=== PATIENT | male | born 1950 | race Hispanic/Latino ===

== ENCOUNTER 2025-02-26 09:37 | Emergency (ER) | payer OTHER ==
[2025-02-26 10:11] LABS: Urine Microscopic Reflex YN NO UMIC
[2025-02-26] MEDS ORDERED: NA CHLORIDE 0.9% 1,000 ML ONE (10:39)
--- NOTE | 2025-02-26 10:42 | RAD REPORT ---
EXAMINATION: Abdomen Pelvis Wo Contrast CLINICAL INDICATION: Male, 74 years old.KIDNEY STONES TECHNIQUE: CT abdomen and pelvis was performed, without IV contrast, as per department protocol. Axia l, sagittal and coronal reconstructions were obtained. One or more of the following dose reduction techniques were used: Automated exposure control, adjustment of the mA and/or kV according to the pat ient size, and/or iterative reconstruction. Unless otherwise specified, incidental findings do not require dedicated imaging follow-up. [id number]. IV CONTRAST: Not administered. COMPARISON: No prior exams FINDINGS: The lack of intravenous contrast limits the sensitivity of this exam for evaluation of solid visceral organs, vascular structures, and retroperitoneum. LOWER CHEST: Mild intralobular septal thickening at the lung bases. Mild cardiomegaly. Coronary calci fications are present. Aortic root calcifications. UPPER GI: No significant abnormality. LIVER: No significant focal abnormality. GALLBLADDER/BILE DUCTS: No biliary ductal dilatation.? PANCREAS: No mass, ductal dilation, or kristine-pancreatic fluid. SPLEEN: Unremarkable. ADRENALS: 11 mm indeterminate left adrenal nodule with Hounsfield units of 36. Adrenal Incidental Ind eterminate, CT W/O, > 1 - 2 cm, > 10 HU, Homogeneous:Noncontrast CT, Incidental Indeterminate Adrenal Mass > 1 - 2 cm, > 10 HU, Homogeneous: Probable benign adenoma. Recommend 1 year follow up ad renal washout CT. If stable for > 1 year, no further f/u imaging.These guidelines do not apply to patients younger than 18 years, patients with cancer, and patients with any clinical suspicion of a f unctioning adrenal lesion. Reference: JACR 2017 Dec; 14(8):1038-44, JCAT 2016 Jul-Aug; 40(2):194-200 KIDNEYS AND URETERS: No hydronephrosis. Limited evaluation for renal lesions in the absence of IV con trast. No renal calculi. No ureteral calculi. ABDOMINAL AORTA AND OTHER VESSELS: Normal caliber aorta and IVC. PERITONEUM: No abnormal free fluid. No free air. LYMPH NODES: No pathologic lymphadenopathy. ABDOMINAL WALL: Fat containing inguinal hernias. SMALL BOWEL/COLON: Small bowel has normal course and caliber. No colonic wall thickening or pericolon ic inflammatory changes. URINARY BLADDER: Underdistended but grossly unremarkable. REPRODUCTIVE ORGANS: Moderate prostatomegaly. MUSCULOSKELETAL: Multilevel degenerative changes in the spine. No acute fracture. ADDITIONAL FINDINGS: None. IMPRESSION: Acute nonperforated diverticulitis of the mid sigmoid colon. Moderate prostatomegaly.
[2025-02-26] MEDS ORDERED: CIPROFLOXACIN 400mg IV 400 MG/200 ML BAG IV ONE (11:26)
[2025-02-26] MEDS ORDERED: CEFTRIAXONE 2000 MG/VIAL ONE (11:27)
[2025-02-26] MEDS ORDERED: METRONIDAZOLE 500mg IVPB 500 MG/100 ML BAG IV ONE (11:27)
[2025-02-26 11:34] LABS: Absolute Lymphocytes (CBC) 1.2 K/uL (0.7-4.9); Hematocrit 33.5 % (39.6-49.0); Hemoglobin 11.5 g/dL (13.6-17.9); MCH 34.6 pg (27.0-35.0); MCHC 34.4 g/dL (32.0-36.0); MCV 100.6 fL (80-100); MPV 8.2 fL (7.6-11.3); Nucleated RBC Absolute Count 0.0 (0-0); Nucleated Red Blood Cells % 0.0 % (0-0); RBC Red Blood Cell Count 3.33 M/uL (4.33-5.43); White Blood Count 9.10 thou/uL (4.3-10.9)
[2025-02-26] MEDS ORDERED: TAMSULOSIN 0.4 MG SR CAP ONE (11:36)
--- NOTE | 2025-02-26 11:46 | ER ---
Nurse's Notes [facility] Name: Vinayak Escamilla Age: 74 yrs Sex: Male : 1950 Arrival Date: 02/26/2025 Time: 09:37 Bed 12 Private MD: Diagnosis: Dysuria;Enlarged prostate with lower urinary tract symptoms;Diverticulitis of large intestine without perforation or abscess without bleeding-SIGMOID Presentation: 02/26 09:58 Chief complaint: Patient states: DYSURIA AND DIFFICULTY x2 WK. Coronavirus screen: At bp this time, the client does not indicate any symptoms associated with coronavirus-19. Ebola Screen: No symptoms or risks identified at this time. Initial Sepsis Screen: Does the patient meet any 2 criteria? No. Patient's initial sepsis screen is negative. Does the patient have a suspected source of infection? No. Patient's initial sepsis screen is negative. Risk Assessment: Do you want to hurt yourself or someone else?. Onset of symptoms is unknown. 09:58 Method Of Arrival: Ambulatory bp 09:58 Acuity: JAYNE 3 bp Triage Assessment: 09:59 General: Appears in no apparent distress. Behavior is calm, cooperative, appropriate bp for age. Pain: Complains of pain in pelvis. EENT: No deficits noted. Neuro: No deficits noted. Cardiovascular: No deficits noted. Respiratory: No deficits noted. GI: No deficits noted. : Reports burning with urination. Derm: No deficits noted. Musculoskeletal: No deficits noted. Historical: - Allergies: 09:59 No Known Allergies; bp - Immunization history:: Adult Immunizations up to date. - Infectious Disease History:: Denies. - Social history:: Smoking status: Patient denies any tobacco usage or history of. - Family history:: not pertinent. Screenin:11 [facility] ED Fall Risk Assessment (Adult) History of falling in the last 3 months, rg5 including since admission No falls in past 3 months (0 pts) Confusion or Disorientation No (0 pts) Intoxicated or Sedated No (0 pts) Impaired Gait No (0 pts) Mobility Assist Device Used No (0 pt) Altered Elimination No (0 pt) Score/Fall Risk Level 0 - 2 = Low Risk Oriented to surroundings, Maintained a safe environment. Abuse screen: Denies threats or abuse. Nutritional screening: No deficits noted. Tuberculosis screening: No symptoms or risk factors identified. Assessment: 11:00 Reassessment: No changes from previously documented assessment. Patient and/or family ll1 updated on plan of care and expected duration. Pain level reassessed. Patient is alert, oriented x 3, equal unlabored respirations, skin warm/dry/pink. 11:41 Reassessment: No changes from previously documented assessment. Patient and/or family ll1 updated on plan of care and expected duration. Pain level reassessed. 11:49 Reassessment: DC ON HOLD FOR IV ABX. bp 12:10 General: Appears in no apparent distress. comfortable, Behavior is calm, cooperative, rg5 appropriate for age. Neuro: Level of Consciousness is awake, alert, obeys commands, Oriented to person, place, time, situation, Appropriate for age. Cardiovascular: Patient's skin is warm and dry. Respiratory: Airway is patent Trachea midline Respiratory effort is even, unlabored, Respiratory pattern is regular, symmetrical. Vital Signs: 09:58 BP 142 / 67; Pulse 59; Resp 16; Temp 97.8; Pulse Ox 97% ; bp 12:28 BP 146 / 71; Pulse 57; Resp 18; Pulse Ox 95% ; rg5 ED Course: 09:39 Patient arrived in ED. im 09:40 Vinay Oreilly MD is Attending Physician. edilia 09:59 Triage completed. bp 09:59 Arm band placed on. bp 10:01 UA Rfx Gurvinder Cult if indicated Sent. ll1 10:01 Urine collected: clean catch specimen. ll1 10:17 CT Abd/Pelvis - Without Contrast In Process Unspecified. EDMS 10:53 No provider procedures requiring assistance completed. Missed attempt(s): 22 gauge in ll1 right antecubital area. Bleeding controlled, band aid applied, catheter tip intact. 10:55 Initial lab(s) drawn, by ne, sent to lab. Inserted saline lock: 22 gauge in left ll1 antecubital area, using aseptic technique. Blood collected. Flushed with 10 mL NS. 10:58 Nataliia Kuhn RN is Primary Nurse. ll1 10:58 CBC with Diff Sent. ll1 10:58 CMP Sent. ll1 11:44 Jerry Sol MD is Referral Physician. edilia 11:44 Thien Menon MD is Referral Physician. edilia 12:11 Patient has correct armband on for positive identification. Bed in low position. Call rg5 light in reach. Side rails up X 1. 13:30 IV discontinued, bleeding controlled, No redness/swelling at site. Pressure dressing rg5 applied. Administered Medications: 10:58 Drug: NS 0.9% IV 1000 ml IV at 1000 ml once; to be given as a bolus over 60 minutes ll1 Route: IV; Rate: 1000 ml; Site: left antecubital; 12:05 Follow up: IV Status: Completed infusion; IV Intake: 1000ml rg5 11:30 Drug: Rocephin IV 2 grams IV at per protocol once; Given slow IV push per [employer] bp instructions Route: IV; Rate: per protocol; Site: left antecubital; 12:05 Follow up: IV Status: Completed infusion; IV Intake: 100ml rg5 11:41 Drug: Flomax PO 0.4 mg PO once Route: PO; ll1 12:21 Follow up: Response: No adverse reaction; Pain is decreased rg5 12:05 Drug: metroNIDAZOLE IVPB 500 mg 100 ml IVPB at 200 ml/hr once over 30 mins Volume: 100 rg5 ml; Route: IVPB; Rate: 200 ml/hr; Infused Over: 30 mins; Site: left antecubital; 12:27 Follow up: Response: No adverse reaction; IV Intake: 100ml rg5 12:28 Follow up: IV Status: Completed infusion; IV Intake: 100ml rg5 12:28 Drug: Ciprofloxacin IVPB 400 mg 200 ml IVPB once over 60 mins Volume: 200 ml; Route: rg5 IVPB; Infused Over: 60 mins; Site: left antecubital; 13:30 Follow up: IV Status: Completed infusion; IV Intake: 200ml rg5 Medication: 12:11 VIS not applicable for this client. rg5 Intake: 12:05 IV: 1000ml; Total: 1000ml. rg5 12:05 IV: 100ml; Total: 1100ml. rg5 12:27 IV: 100ml; Total: 1200ml. rg5 12:28 IV: 100ml; Total: 1300ml. rg5 13:30 IV: 200ml; Total: 1500ml. rg5 Outcome: 11:45 Discharge ordered by MD. yeboah 12:11 Discharged to home ambulatory, rg5 12:11 Condition: stable 12:11 Discharge instructions given to patient, 13:30 Patient left the ED. rg5 Signatures: Dispatcher [employer] Vinay Bryant MD MD cha Peltier, Brian, RN RN Nataliia White RN RN ll1 Danna Salmon Rommel, ARNOLDO RN rg5
--- NOTE | 2025-02-26 11:46 | EDPHYS ---
Physician Documentation [facility] Name: Vinayak Escamilla Age: 74 yrs Sex: Male : 1950 Arrival Date: 02/26/2025 Time: 09:37 Bed 12 Private MD: ED Physician Vinay Oreilly HPI: 02/26 11:39 This 74 yrs old Male presents to ER via Ambulatory with complaints of Urinary edilia Problem. 11:39 The patient presents with abdominal pain in the lower abdomen, in the left lower edilia quadrant, abdominal distention in the lower abdomen. Onset: The symptoms/episode began/occurred 14 day(s) ago. The patient presents with swelling, tenderness, urinary symptoms, urinary frequency. Modifying factors: The symptoms are alleviated by nothing, the symptoms are aggravated by urinating. Associated signs and symptoms: The patient has no apparent associated signs or symptoms. Associated signs and symptoms: none. Historical: - Allergies: 09:59 No Known Allergies; bp - Immunization history:: Adult Immunizations up to date. - Infectious Disease History:: Denies. - Social history:: Smoking status: Patient denies any tobacco usage or history of. - Family history:: not pertinent. ROS: 11:39 Constitutional: Negative for fever, chills, and weight loss, Eyes: Negative for injury, edilia pain, redness, and discharge, ENT: Negative for injury, pain, and discharge, Neck: Negative for injury, pain, and swelling, Cardiovascular: Negative for chest pain, palpitations, and edema, Respiratory: Negative for shortness of breath, cough, wheezing, and pleuritic chest pain, Back: Negative for injury and pain, MS/Extremity: Negative for injury and deformity, Skin: Negative for injury, rash, and discoloration, Neuro: Negative for headache, weakness, numbness, tingling, and seizure, Psych: Negative for depression, anxiety, suicide ideation, homicidal ideation, and hallucinations, Allergy/Immunology: Negative for hives, rash, and allergies, Endocrine: Negative for neck swelling, polydipsia, polyuria, polyphagia, and marked weight changes, Hematologic/Lymphatic: Negative for swollen nodes, abnormal bleeding, and unusual bruising, 11:39 Abdomen/GI: Positive for abdominal pain, of the suprapubic area, 11:39 : Positive for urinary frequency, burning with urination, Exam: 11:39 Constitutional: This is a well developed, well nourished patient who is awake, alert, edilia and in no acute distress. Head/Face: Normocephalic, atraumatic. Eyes: Pupils equal round and reactive to light, extra-ocular motions intact. Lids and lashes normal. Conjunctiva and sclera are non-icteric and not injected. Cornea within normal limits. Periorbital areas with no swelling, redness, or edema. ENT: Nares patent. No nasal discharge, no septal abnormalities noted. Tympanic membranes are normal and external auditory canals are clear. Oropharynx with no redness, swelling, or masses, exudates, or evidence of obstruction, uvula midline. Mucous membranes moist. Neck: Trachea midline, no thyromegaly or masses palpated, and no cervical lymphadenopathy. Supple, full range of motion without nuchal rigidity, or vertebral point tenderness. No Meningismus. Chest/axilla: Normal chest wall appearance and motion. Nontender with no deformity. No lesions are appreciated. Cardiovascular: Regular rate and rhythm with a normal S1 and S2. No gallops, murmurs, or rubs. Normal PMI, no JVD. No pulse deficits. Respiratory: Lungs have equal breath sounds bilaterally, clear to auscultation and percussion. No rales, rhonchi or wheezes noted. No increased work of breathing, no retractions or nasal flaring. Back: No spinal tenderness. No costovertebral tenderness. Full range of motion. Skin: Warm, dry with normal turgor. Normal color with no rashes, no lesions, and no evidence of cellulitis. MS/ Extremity: Pulses equal, no cyanosis. Neurovascular intact. Full, normal range of motion., bilateral aka Neuro: Awake and alert, GCS 15, oriented to person, place, time, and situation. Cranial nerves II-XII grossly intact. Motor strength 5/5 in all extremities. Sensory grossly intact. Cerebellar exam normal. Normal gait. Psych: Awake, alert, with orientation to person, place and time. Behavior, mood, and affect are within normal limits. 11:39 Abdomen/GI: Inspection: abdomen appears normal, Bowel sounds: normal, Palpation: mild abdominal tenderness, in the suprapubic area and left lower quadrant, Liver: no appreciated palpable abnormalities, Hernia: not appreciated, 11:39 Musculoskeletal/extremity: DVT Exam: No signs of deep vein thrombosis. no pain, no swelling, no tenderness, negative Homans' sign noted on exam, no appreciated bluish discoloration, no erythema, no increased warmth, Vital Signs: 09:58 BP 142 / 67; Pulse 59; Resp 16; Temp 97.8; Pulse Ox 97% ; bp 12:28 BP 146 / 71; Pulse 57; Resp 18; Pulse Ox 95% ; rg5 MDM: 09:40 Medical Screening Exam initiated [facility] 11:41 Differential diagnosis: nonspecific abdominal pain, UTI, prostatitis, urethritis, edilia appendicitis, bowel obstruction, diverticulitis, gastritis, non-specific abd pain, pancreatitis, urinary tract infection. Data reviewed: vital signs, nurses notes, lab test result(s), radiologic studies, CT scan. Consideration of Admission/Observation Escalation of care including admission/observation considered. I considered the following discharge prescriptions or medication management in the emergency department Medications were administered in the Emergency Department. See MAR. Test considered but Not performed: Ultrasound no abd usg. Historians other than the Patient: Family Member: and daughter SHAYNE. Care significantly affected by the following chronic conditions: Hypertension, bph. 02/26 09:42 Order name: UA Rfx Gurvinder Cult if indicated; Complete Time: 10:42 [facility] 02/26 10:42 Order name: CBC with Diff; Complete Time: 11:44 [facility] 02/26 10:42 Order name: CMP; Complete Time: 11:50 [facility] 02/26 10:01 Order name: CT Abd/Pelvis - Without Contrast; Complete Time: 11:22 bp Administered Medications: 10:58 Drug: NS 0.9% IV 1000 ml IV at 1000 ml once; to be given as a bolus over 60 minutes ll1 Route: IV; Rate: 1000 ml; Site: left antecubital; 12:05 Follow up: IV Status: Completed infusion; IV Intake: 1000ml rg5 11:30 Drug: Rocephin IV 2 grams IV at per protocol once; Given slow IV push per [employer] bp instructions Route: IV; Rate: per protocol; Site: left antecubital; 12:05 Follow up: IV Status: Completed infusion; IV Intake: 100ml rg5 11:41 Drug: Flomax PO 0.4 mg PO once Route: PO; ll1 12:21 Follow up: Response: No adverse reaction; Pain is decreased rg5 12:05 Drug: metroNIDAZOLE IVPB 500 mg 100 ml IVPB at 200 ml/hr once over 30 mins Volume: 100 rg5 ml; Route: IVPB; Rate: 200 ml/hr; Infused Over: 30 mins; Site: left antecubital; 12:27 Follow up: Response: No adverse reaction; IV Intake: 100ml rg5 12:28 Follow up: IV Status: Completed infusion; IV Intake: 100ml rg5 12:28 Drug: Ciprofloxacin IVPB 400 mg 200 ml IVPB once over 60 mins Volume: 200 ml; Route: rg5 IVPB; Infused Over: 60 mins; Site: left antecubital; 13:30 Follow up: IV Status: Completed infusion; IV Intake: 200ml rg5 Disposition Summary: 02/26/25 11:45 Discharge Ordered Notes: Location: Home edilia Problem: new edilia Symptoms: have improved edilia Condition: Stable edilia Diagnosis - Dysuria edilia - Enlarged prostate with lower urinary tract symptoms edilia - Diverticulitis of large intestine without perforation or abscess without bleeding - [facility] SIGMOID Followup: edilia - With: Private Physician - When: 2 - 3 days - Reason: Recheck today's complaints, Continuance of care, Re-evaluation by your physician Followup: edilia - With: Jerry Sol MD - When: 2 - 3 days - Reason: Recheck today's complaints, Re-evaluation by your physician Followup: edilia - With: Thien Menon MD - When: 2 - 3 days - Reason: Recheck today's complaints, Re-evaluation by your physician Discharge Instructions: - Discharge Summary Sheet [facility] - High-Fiber Eating Plan edilia - Diverticulitis edilia - Dysuria edilia - Diverticulitis, Euvm-al-Wegu [facility] Forms: - Medication Reconciliation Form [facility] - Antibiotic Education edilia - Prescription Opioid Use [facility] - Patient Portal Instructions [facility] - Leadership Thank You Letter [facility] Prescriptions: - Flomax 0.4 mg Oral capsule - take 1 capsule ORAL route daily; 30 capsule; Refills: 0, Product Selection [facility] Permitted - Colace 100 mg Oral Tablet - take 1 tablet ORAL route every 12 hours; 14 tablet; Refills: 0, Product [facility] Selection Permitted - Flagyl 500 mg Oral tablet - take 1 tablet ORAL route every 6 hours for 7 days; 28 tablet; Refills: 0, [facility] Product Selection Permitted - Pyridium 200 mg Oral Tablet - take 1 tablet ORAL route every 8 hours for 3 days; 9 tablet; Refills: 0, [facility] Product Selection Permitted - Cipro 500 mg Oral Tablet - take 1 tablet ORAL route every 12 hours for 7 days; 14 tablet; Refills: 0, edilia Product Selection Permitted - dicyclomine 20 mg Oral tablet - take 1 tablet ORAL route 4 times per day; 28 tablet; Refills: 0, Product edilia Selection Permitted Signatures: Dispatcher [employer] Vinay Bryant MD MD cha Peltier, Brian, RN RN Nataliia White RN RN ll1 Gely Ornelas, PAMarcella PA-C sb4 Noah Cooper RN RN rg5
[2025-02-26 11:47] LABS: ALT/SGPT 31.0 U/L (16-61); AST/SGOT 34.0 U/L (15-37); Albumin 3.0 g/dL (3.4-5.0); Albumin/Globulin Ratio 0.9 (1.1-1.8); Alkaline Phosphatase 44.0 U/L (45-117); Anion Gap 9.7 mEq/L (5.0-15.0); BUN Blood Urea Nitrogen 21.0 mg/dL (7-18); Globulin 3.3 g/dL (2.3-3.5); Glucose Level 97.0 mg/dL (74-106); Potassium 3.7 mEq/L (3.5-5.1)
[2025-02-26 16:25] VITALS: TEMP 97.8
[2025-02-26 16:31] VITALS: BP 146/71; O2SAT 95
== END 2025-02-26 13:30 | disposition home or self-care (01) ==
LOC: ER 09:37
DX: N40.1 Benign prostatic hyperplasia with lower urinary tract symptoms (principal); R35.0 Frequency of micturition; R30.0 Dysuria; K57.32 Diverticulitis of large intestine without perforation or abscess without bleeding
CPT/HCPCS: 96365; 96367; 96361; 85025; 36415; 81003; 80053; 74176; 99284; J0696; J0744; J7030